=== PATIENT | female | born 1925 | race African-American/Black ===

== ENCOUNTER 2016-12-05 19:15 | Inpatient (IN) | payer OTHER ==
[~2016-12-05] VITALS: Ht 162.6 cm; Wt 71.2 kg
--- NOTE | ~2016-12-05 | EKG ---
[address] [place] [address] ELECTROCARDIOGRAM REPORT Name: HITESH BELTRE Room #: 462-P [facility] IN .R.#: [id number] Admission: 12/05/16 Attend Phys: Dinesh Crooks MD Discharge: Date of : [birth year] Report #: [id number] THIS REPORT FOR: //name// [facility] [place] [place] ED Test Date: 2016-12-05 Test Time: 19:38:29 Pat Name: HITESH BELTRE Department: Room: 462 Gender: F Enterprise Infrastructure Architect: SISI : 1925 Requested By: Eagle Clifford Order Number: [id number] MD: Soham Virgen Measurements Intervals [place] Rate: 126 P: 32 OR: 128 QRS: -2 QRSD: 107 T: 38 QT: 320 QTc: 464 Interpretive Statements Sinus tachycardia Abnormal R-wave progression, late transition Baseline wander in lead(s) II,III,aVF Compared to ECG 11/30/2010 18:04:44 Early R-wave progression is no longer present Electronically Signed On 12-06-2016 18:21:47 CDT by Soham Virgen [email or web address] <ELECTRONICALLY SIGNED> By: Soham Virgen MD, [facility] 12/06/16 1821 37 37 Soham Virgen MD, [facility] /EPI
--- NOTE | ~2016-12-05 | EKG ---
[address] [address] ELECTROCARDIOGRAM REPORT Name: HITESH BELTRE Room #: 462-[facility] IN M.R.#: [id number] Admission: 12/05/16 Attend Phys: Dinesh Crooks MD Discharge: Date of : [birth year] Report #: [id number] THIS REPORT FOR: //name// [facility] Test Date: 2016-12-07 Test Time: 06:31:03 Pat Name: HITESH BELTRE Department: Room: 462 Gender: F Photovoltaic Installer: SALLY : 1925 Requested By: Araceli Connor Order Number: [id number] MD: Soham Virgen Measurements Intervals [place] Rate: 88 P: 33 UT: 161 QRS: 12 QRSD: 88 T: 51 QT: 369 QTc: 447 Interpretive Statements Sinus rhythm No significant abnormality Compared to ECG 12/05/2016 19:38:29 Heart rate has slowed Electronically Signed On 12-08-2016 9:08:24 CDT by Soham Virgen [email or web address] <ELECTRONICALLY SIGNED> By: Soham Virgen MD, [facility] 12/08/16 0908 0 0 Soham Virgen MD, [facility] /EPI
--- NOTE | ~2016-12-05 | HC ---
[facility] [place] [address] CONSULTATION Name: MARIA LUISA BELTREDevonte Fowler Room #: 462-P ADM IN .R.#: [id number] Admission: 12/05/16 Attend Phys: Dinesh Crooks MD Discharge: Date of : [birth year] Report #: [id number] THIS REPORT FOR: //name// CC: [facility] physician/PCP Dinesh Crooks INFECTIOUS DISEASE CONSULTATION REASON FOR CONSULTATION: I was asked to evaluate concerning possible infection causing altered mental status. HISTORY OF PRESENT ILLNESS: The patient is an 89-year-old who presented from ____ nursing to the Emergency Room with change in mental status yesterday. She had a fall without any definite loss of consciousness. She has had generalized weakness. She does have underlying rheumatoid arthritis with fairly advance disease. She has chronic lower extremity wounds and a Mohan catheter. She denies any significant cough, sputum, nausea, vomiting or diarrhea. No shortness of breath or chest pain. PAST MEDICAL HISTORY: Hypertension, venous stasis disease, rheumatoid arthritis, hyperlipidemia, glaucoma and cholecystectomy. ALLERGIES: ASPIRIN, PORK. MEDICATIONS: As noted on her MAR and received vancomycin and ceftriaxone through the Emergency Room. FAMILY HISTORY: Noncontributory. SOCIAL HISTORY: Nonsmoker, no significant alcohol intake. REVIEW OF SYSTEMS: Noted above. PHYSICAL EXAMINATION: VITAL SIGNS: Maximum temperature is 100.9 degrees axillary last evening and now 99.4, hemodynamically stable. She was alert and cooperative, 98% saturation on room air. SKIN: She had advance rheumatoid arthritis and had contractures of both upper and lower extremities. She had extensive wounds to both lower extremities that were in layered wraps. HEENT: Unremarkable. GENERAL: She was alert, but had mild confusion. LUNGS: Clear anteriorly. HEART: Regular without appreciable murmur. ABDOMEN: Soft, nontender, no hepatosplenomegaly or mass. LABORATORY STUDIES: Sedimentation rate was 78. Blood culture is negative. [facility] [address] [place] [address] CONSULTATION Name: HITESH BELTRE Room #: 462-P [facility] IN [facility]#: [id number] Admission: 12/05/16 Attend Phys: Dinesh Crooks MD Discharge: Date of : [birth year] Report #: [id number] Urine culture, gram-negative bacilli. Urinalysis greater than 25 wbc's and many bacteria. Hemoglobin 10.5, WBC 11.5, platelet count 222,000. Sodium 135, potassium 4.1, bicarbonate 22, creatinine 0.8. Chest x-ray, no acute pulmonary infiltrate. Lactic acid 1.3. Liver function test normal. IMPRESSION: Suspect sepsis as the cause of her change in mental status. Urinary tract source seems most likely. PLAN: I would recommend continuing gram-negative coverage while awaiting final culture results. Continue wound care to her lower extremities. <ELECTRONICALLY SIGNED> By: Wade Bauer MD 12/07/16 0850 [id number] Wade Bauer MD /erendira
[~2016-12-05 19:15] MED LIST: ACETAMINOPHEN325 M1; ACETAMINOPHEN325 M1 PO; AMBEREN PO; CEFTIN 250 MG250 MG; COSOPT OCUMETER10 M1; EUCERIN; EUCERIN CREME57 GM; KEFLEX500 MG PO; LOPERAMIDE 2 MG2 M1; LOPERAMIDE 2 MG2 M1 PO; LOPRESSOR; LOPRESSOR PO; MUCINEX TA600 MG/TA1 PO; NORCO 5-325 TA1 EACH PO; ROBITUSSIN100 MG/5 M; ROBITUSSIN15 MG/5 M1 PO; UNICOMPLEX M TA1 TA1; VASOLEX OINTMEN60 G1; VASOLEX OINTMENT5 GM; [UNRECOGNIZED DRUG - OTHER]; [UNRECOGNIZED DRUG - SUPPLY]
[2016-12-05 19:16] VITALS: BP 136/81
[2016-12-05 19:55] LABS: ABSOLUTE NEUTROPHILS 12.3 thou/uL (1.4-8.2); BASOPHILS 0.6 % (0.0-2.0); HEMATOCRIT 35.8 % (37.0-47.0); MCH 30.7 pg (26.0-34.0); MCHC 33.5 g/dL (28.0-37.0); MCV 91.7 fL (80.0-100.0); MONOCYTES 4.7 % (1.0-8.0); PLATELET COUNT 312 thou/uL (150-400); POLYS 79.7 % (36.0-66.0); RBC 3.91 mil/uL (4.20-5.00); RDW 13.7 % (10.5-14.5); WBC 15.5 thou/uL (4.0-11.0)
[2016-12-05 19:56] LABS: MANUAL DIFF NO
[2016-12-05 20:00] LABS: ANION GAP 11 mmol/L (7-16); BUN 16 mg/dL (7-18); CALCIUM 8.9 mg/dL (8.5-10.1); CHLORIDE 97 mmol/L (98-107); CO2 24 mmol/L (21-32); GLUCOSE 108 mg/dL (74-106); POTASSIUM 4.8 mmol/L (3.5-5.1); SODIUM 132 mmol/L (136-145)
[2016-12-05 20:08] LABS: ALBUMIN 2.8 g/dL (3.4-5.0); ALKALINE PHOSPHATASE 86 U/L (46-116); SGOT 21 U/L (15-37); SGPT 15 U/L (30-65); TOTAL PROTEIN 7.6 g/dL (6.4-8.2); TROPONIN-I < 0.04 ng/mL (<0.04-0.07)
[2016-12-05 20:23] LABS: URINE BLOOD 3+ (Negative); URINE GLUCOSE-RANDOM* NEGATIVE (Negative); URINE KETONES NEGATIVE (Negative); URINE LEUKOCYTES-REFLEX 2+ (Negative); URINE PROTEIN (DIPSTICK) 2+ (Negative); URINE SPECIFIC GRAVITY >= 1.030 (1.003-1.035)
[2016-12-05 20:24] LABS: ICTOTEST (BILI CONFIRMATORY) Negative (Negative); URINE BILIRUBIN NEGATIVE (Negative); URINE COLOR DARK YELLOW
[2016-12-05 20:29] LABS: SQUAMOUS 0-3 Few /LPF (0-3)
[2016-12-05 20:30] LABS: AMORPHOUS URATES Few /LPF (None Seen); CASTS None Seen /LPF (None Seen); URINE WBC-REFLEX >25 Many /HPF (0-5); WBC CLUMPS Rare (None Seen)
[2016-12-05] MEDS ORDERED: VITAMIN D 5050000 I1 PO (20:40)
[2016-12-05] MEDS ORDERED: CENTRUM SILVER1 EAC2 PO (20:41)
[2016-12-05] MEDS ORDERED: PRINIVIL20 MG PO (20:41)
[2016-12-05] MEDS ORDERED: SENOKOT-S1 TA1 PO (20:42)
[2016-12-05] MEDS ORDERED: VITAMINC500 PO (20:43)
[2016-12-05] MEDS ORDERED: JUVEN PACKET1 EACH PO (20:43)
[2016-12-05 22:17] VITALS: BP 152/79
[2016-12-05 22:51] VITALS: BP 149/64
[2016-12-06 04:28] VITALS: BP 149/90
[2016-12-06 06:32] LABS: ABSOLUTE NEUTROPHILS 8.7 thou/uL (1.4-8.2); BASOPHILS 0.4 % (0.0-2.0); EOSINOPHILS 1.4 % (0.0-3.0); HEMATOCRIT 31.1 % (37.0-47.0); HEMOGLOBIN 10.5 gm/dL (12.0-15.0); LYMPHOCYTES 16.6 % (24.0-44.0); MCH 31.3 pg (26.0-34.0); MCHC 33.8 g/dL (28.0-37.0); MCV 92.7 fL (80.0-100.0); MONOCYTES 5.9 % (1.0-8.0); POLYS 75.7 % (36.0-66.0); RBC 3.36 mil/uL (4.20-5.00); RDW 13.6 % (10.5-14.5); WBC 11.5 thou/uL (4.0-11.0)
[2016-12-06 06:39] LABS: CALCIUM 8.3 mg/dL (8.5-10.1); CREATININE 0.8 mg/dL (0.6-1.0); POTASSIUM 4.1 mmol/L (3.5-5.1)
[2016-12-06 06:44] LABS: MANUAL DIFF NO; PLATELET COUNT 222 thou/uL (150-400)
[2016-12-06 07:25] VITALS: BP 142/60
[2016-12-06 11:27] LABS: TSH 2.614 uIU/mL (0.358-3.740)
[2016-12-06 11:48] VITALS: BP 145/85
[2016-12-06 15:40] VITALS: BP 139/93
[2016-12-06 19:44] VITALS: BP 172/77
[2016-12-07 03:49] VITALS: BP 110/59
[2016-12-07 07:35] VITALS: BP 138/114
[2016-12-07 11:57] VITALS: BP 148/59
[2016-12-07 16:33] VITALS: BP 161/99
[2016-12-07 17:21] LABS: CALCIUM 8.7 mg/dL (8.5-10.1); POTASSIUM 4.7 mmol/L (3.5-5.1)
[2016-12-07 17:35] LABS: CREATININE 0.7 mg/dL (0.6-1.0)
[2016-12-07 18:59] VITALS: BP 155/80
[2016-12-08 03:54] VITALS: BP 146/55
[2016-12-08] MEDS ORDERED: AMOXICILLIN875 MG PO (13:39)
[2016-12-09 17:09] LABS: ALPHA TOCOPHEROL 8.5 mg/L (6.5-21.5)
== END 2016-12-08 16:37 | DRG 871 ==
LOC: ER 19:15 → 4W 20:52 → EROBS 20:52 → 4W 21:58
PROVIDERS: Hospitalist; Nurse Practitioner Family; Physician Assistant; Psychiatry & Neurology Neurology
DX: A41.9 Sepsis, unspecified organism (principal); G92 Toxic encephalopathy; N39.0 Urinary tract infection, site not specified; I10 Essential (primary) hypertension; E78.5 Hyperlipidemia, unspecified; H92.01 Otalgia, right ear; I87.8 Other specified disorders of veins; F03.90 Unspecified dementia, unspecified severity, without behavioral disturbance, psychotic disturbance, mood disturbance, and anxiety; M06.9 Rheumatoid arthritis, unspecified; E78.00 Pure hypercholesterolemia, unspecified; H40.9 Unspecified glaucoma; Z90.49 Acquired absence of other specified parts of digestive tract; Z88.6 Allergy status to analgesic agent; Z88.8 Allergy status to other drugs, medicaments and biological substances; Z79.899 Other long term (current) drug therapy
CPT/HCPCS: 10045